=== PATIENT | male | born 1975 | race Caucasian/White ===

== ENCOUNTER 2019-10-27 01:38 | Emergency (ER) | payer BC ==
[~2019-10-27] VITALS: Ht 175.3 cm; Wt 86.2 kg
--- NOTE | 2019-10-27 01:50 | NUR ---
XRAY AT BEDSIDE
--- NOTE | 2019-10-27 01:57 | NUR ---
PT CAME INTO THE C/O RIGHT 5TH DIGIT PAIN WITH DEFORMITY S/P GLF @1230. PT AAOX4, NO ACUTE DISTRESS NOTED. AWAITING FOR MD PEOPLES
--- NOTE | 2019-10-27 03:30 | NUR ---
XRAY AT BEDSIDE
[2019-10-27] MEDS ORDERED: HYDROCODONE/APAP 5/325MG 1 EACH TABLET ONE (04:05)
[2019-10-27] MEDS ORDERED: HYDROCODONE/APAP 5/325MG 1 EACH TABLET PO ONE (04:30)
--- NOTE | 2019-10-27 04:54 | NUR ---
Patient discharged to home in stable condition. Written and verbal after care instructions given. Patient verbalizes understanding of instruction.
[2019-10-27 04:55] VITALS: BP 133/67
== END 2019-10-27 04:56 | disposition home or self-care (01) ==
LOC: ER 01:41
DX: S62.616A Displaced fracture of proximal phalanx of right little finger, initial encounter for closed fracture (principal); F17.200 Nicotine dependence, unspecified, uncomplicated; W18.39XA Other fall on same level, initial encounter; Y93.89 Activity, other specified; Y92.89 Other specified places as the place of occurrence of the external cause; Y99.8 Other external cause status
CPT/HCPCS: 73130-TC; 73140-TC

== ENCOUNTER 2024-11-26 06:31 | Inpatient (IN) | payer BC, OTHER ==
[~2024-11-26] VITALS: Ht 172.7 cm; Wt 90.7 kg
[2024-11-26] VITALS (31 sets, daily range): BP systolic 107–142; BP diastolic 70–102; TEMP 98.2–98.8; O2SAT 91–98
[2024-11-26] MEDS ORDERED: ASPIRIN 325 MG TABLET ONE (06:54)
[2024-11-26] MEDS: ASPIRIN 325 MG TABLET PO ONE (06:55)
[2024-11-26 07:24] LABS: BASOPHILS # (AUTO) 0.1 K/uL (0.0-0.2); BASOPHILS % (AUTO) 0.8 % (0.0-2.0); EOSINOPHILS % (AUTO) 9.6 % (0.0-6.0); HEMATOCRIT 48 % (39-51); HEMOGLOBIN 16.3 g/dL (13.5-17.5); LYMPHOCYTES # (AUTO) 2.7 K/uL (0.8-4.8); LYMPHOCYTES % (AUTO) 26.1 % (20.0-44.0); MEAN CORPUSCULAR HEMOGLOBIN 29 PG (26.0-33.0); MEAN CORPUSCULAR HGB CONC 34 g/dl (31.0-36.0); MEAN CORPUSCULAR VOLUME 85 fL (80-96); MONOCYTES # (AUTO) 0.8 K/uL (0.1-1.30); MONOCYTES % (AUTO) 7.4 % (2.0-12.0); NEUTROPHILS # (AUTO) 5.9 K/uL (1.8-8.9); NEUTROPHILS % (AUTO) 56.1 % (43.0-81.0); PLATELET COUNT (AUTO) 240 K/uL (150-450); RED BLOOD CELL COUNT(AUTO) 5.62 MIL/uL (4.5-6.0); RED CELL DISTRIBUTION WIDTH 13.6 % (11.5-15.0); WHITE BLOOD COUNT (AUTO) 10.5 K/uL (4.3-11.0)
[2024-11-26] MEDS: ONDANSETRON HCL/PF 4 MG/2 ML VIAL IVP ONE (07:30)
[2024-11-26] MEDS: MORPHINE SULFATE INJ 2 MG/ML DISP.SYRIN IV ONE ×2 (07:30→08:57)
[2024-11-26] MEDS ORDERED: MORPHINE SULFATE INJ 2 MG/ML DISP.SYRIN ONE ×2 (07:33→08:44)
[2024-11-26] MEDS ORDERED: ONDANSETRON HCL/PF 4 MG/2 ML VIAL ONE (07:33)
[2024-11-26 07:36] LABS: CALCIUM, SERUM 8.7 mg/dL (8.5-10.1); CARBON DIOXIDE 31 mmol/L (21-32); CHLORIDE 105 mmol/L (98-107); CREATININE 1.1 mg/dL (0.6-1.3); GLUCOSE 119 mg/dL (74-106); POTASSIUM 4.2 mmol/L (3.5-5.1); SODIUM SERUM 142 mmol/L (136-145); UREA NITROGEN, BLOOD 19 mg/dL (7-18)
[2024-11-26] MEDS: ENOXAPARIN SODIUM 100 MG/ML DISP.SYRIN SQ SCH (08:43)
[2024-11-26] MEDS ORDERED: ENOXAPARIN SODIUM 100 MG/ML DISP.SYRIN SQ ONE (08:44)
[2024-11-26] MEDS ORDERED: METOPROLOL TARTRATE INJ 5 MG/5 ML AMPUL IVP SCH (09:00)
[2024-11-26] MEDS ORDERED: NITROGLYCERIN IN 5 % DEXTROSE 250 ML IV ONE (09:21)
[2024-11-26] MEDS ORDERED: IODIXANOL 150 ML IV ONE (09:21)
[2024-11-26] MEDS ORDERED: IV NS 0.9% 1,000 ML ONE (09:21)
[2024-11-26] MEDS ORDERED: IV SET PRIMARY PUMP SET 1 EA INFUS.SET MC ONE (09:21)
[2024-11-26] MEDS ORDERED: LIDOCAINE HCL/MPF 1% 30 ML VIAL IJ ONE (09:21)
[2024-11-26 09:35] LABS: PROTHROMBIN TIME 10.6 SECS (9.2-11.1)
[2024-11-26] MEDS ORDERED: MIDAZOLAM HCL 2 MG/2ML VIAL ONE (10:19)
[2024-11-26] MEDS ORDERED: FENTANYL PF 100MCG/2ML AMPUL ONE (10:19)
[2024-11-26] MEDS ORDERED: IODIXANOL 320MG/ML 50 ML IV ONE (10:29)
[2024-11-26] MEDS: ATORVASTATIN 40 MG TABLET PO SCH (10:30)
[2024-11-26] MEDS: PANTOPRAZOLE 40 MG TABLET.DR PO SCH (10:30)
[2024-11-26] MEDS ORDERED: HEPARIN SODIUM, PORCINE 5000 UNITS/1 ML VIAL ONE (10:31)
[2024-11-26] MEDS ORDERED: HEPARIN SODIUM, PORCINE 1,000 UNIT/ML VIAL ONE (10:31)
[2024-11-26] MEDS ORDERED: IODIXANOL 320MG/ML 100 ML IV ONE ×2 (10:45→10:57)
[2024-11-26] MEDS ORDERED: TICAGRELOR 90 MG TABLET ONE (10:59)
[2024-11-26] MEDS: METOPROLOL TARTRATE 50 MG TABLET PO SCH (12:00)
[2024-11-26 12:15] LABS: CHOLESTEROL 223 mg/dL (<200); HDL CHOLESTEROL 54 mg/dL (40-60); LDL 144 mg/dL (0-99); TRIGLYCERIDES 104 mg/dL (30-150)
[2024-11-26] MEDS ORDERED: MORPHINE SULFATE INJ 2 MG/ML DISP.SYRIN IM PRN (13:00)
[2024-11-26] MEDS: MORPHINE SULFATE INJ 2 MG/ML DISP.SYRIN IV PRN (13:18)
[2024-11-26] MEDS ORDERED: ONDANSETRON HCL/PF 4 MG/2 ML VIAL IVP PRN (14:00)
[2024-11-26] MEDS ORDERED: ACETAMINOPHEN 325 MG TABLET PO PRN (14:00)
[2024-11-26] MEDS ORDERED: Z GUARD REMEDY 4 OZ OINT TP PRN (14:00)
[2024-11-26] MEDS: TICAGRELOR 90 MG TABLET PO SCH (17:47)
[2024-11-27] VITALS (14 sets, daily range): BP systolic 69–116; BP diastolic 36–93; TEMP 97–99.8; O2SAT 92–99
[2024-11-27 04:00] LABS: BASOPHILS # (AUTO) 0.1 K/uL (0.0-0.2); BASOPHILS % (AUTO) 0.7 % (0.0-2.0); EOSINOPHILS # (AUTO) 0.5 K/uL (0.0-0.7); EOSINOPHILS % (AUTO) 4.8 % (0.0-6.0); HEMATOCRIT 43 % (39-51); HEMOGLOBIN 14.6 g/dL (13.5-17.5); LYMPHOCYTES # (AUTO) 2.4 K/uL (0.8-4.8); MEAN CORPUSCULAR HEMOGLOBIN 29 PG (26.0-33.0); MEAN CORPUSCULAR HGB CONC 34 g/dl (31.0-36.0); MEAN CORPUSCULAR VOLUME 84 fL (80-96); MONOCYTES # (AUTO) 1.1 K/uL (0.1-1.30); MONOCYTES % (AUTO) 10.5 % (2.0-12.0); NEUTROPHILS # (AUTO) 6.3 K/uL (1.8-8.9); PLATELET COUNT (AUTO) 223 K/uL (150-450); RED CELL DISTRIBUTION WIDTH 13.3 % (11.5-15.0); WHITE BLOOD COUNT (AUTO) 10.3 K/uL (4.3-11.0)
[2024-11-27 04:28] LABS: ALANINE AMINOTRANSFERASE 52 U/L (12-78); ALBUMIN 3.1 g/dL (3.4-5.0); ALKALINE PHOSPHATASE 49 U/L (46-116); ASPARTATE AMINOTRANSFERASE 163 U/L (15-37); BILIRUBIN,TOTAL 0.5 mg/dL (0.2-1.0); CALCIUM, SERUM 8.4 mg/dL (8.5-10.1); CARBON DIOXIDE 28 mmol/L (21-32); CHLORIDE 107 mmol/L (98-107); CREATININE 0.8 mg/dL (0.6-1.3); GLUCOSE 108 mg/dL (74-106); MAGNESIUM 1.9 mg/dL (1.8-2.4); PHOSPHORUS 3.6 mg/dL (2.5-4.9); POTASSIUM 4.2 mmol/L (3.5-5.1); SODIUM SERUM 142 mmol/L (136-145); TOTAL PROTEIN, SERUM 6.5 g/dL (6.4-8.2); UREA NITROGEN, BLOOD 13 mg/dL (7-18)
[2024-11-27 04:32] LABS: CHOLESTEROL 206 mg/dL (<200); HDL CHOLESTEROL 57 mg/dL (40-60); LDL 139 mg/dL (0-99); TRIGLYCERIDES 66 mg/dL (30-150)
[2024-11-27] MEDS: ASPIRIN 81 MG TAB.CHEW PO SCH (08:43)
[2024-11-27] MEDS: METOPROLOL TARTRATE 50 MG TABLET PO SCH (08:43)
[2024-11-27] MEDS ORDERED: TICA90TA PO (15:07)
[2024-11-27] MEDS ORDERED: ASPI-1169 PO (15:07)
== END 2024-11-27 18:12 | disposition home or self-care (01) | DRG 174 ==
LOC: ER 06:36 → TELE 09:19 → ICU 09:37
PROVIDERS: ADMIT Nurse Practitioner Acute Care; ATTEND Internal Medicine
PROC: 4A023N7 Measurement of Cardiac Sampling and Pressure, Left Heart, Percutaneous Approach (ICD-10-PCS; principal; 2024-11-26)
PROC: 027034Z Dilation of Coronary Artery, One Artery with Drug-eluting Intraluminal Device, Percutaneous Approach (ICD-10-PCS; 2024-11-26)
PROC: B211YZZ Fluoroscopy of Multiple Coronary Arteries using Other Contrast (ICD-10-PCS; 2024-11-26)
PROC: 02C03ZZ Extirpation of Matter from Coronary Artery, One Artery, Percutaneous Approach (ICD-10-PCS; 2024-11-26)
DX: I21.4 Non-ST elevation (NSTEMI) myocardial infarction (principal); E78.5 Hyperlipidemia, unspecified; I10 Essential (primary) hypertension; I65.21 Occlusion and stenosis of right carotid artery; I25.10 Atherosclerotic heart disease of native coronary artery without angina pectoris; Z98.890 Other specified postprocedural states; Z72.0 Tobacco use; Z79.01 Long term (current) use of anticoagulants; Z79.899 Other long term (current) drug therapy
CPT/HCPCS: 36415; 71045-TC; 80048-TC; 80053-TC; 80061-TC; 83735-TC; 84100-TC; 84484-TC; 85025-TC; 85347; 85610-TC; 85730-TC; 87081-TC; 93307-TC; A4223; G0378; J1644; J1650; J2250; J2270; J2405; J3010; J3490; J7030; Q9967

== ENCOUNTER 2025-03-24 09:40 | Emergency (ER) | payer OTHER ==
[~2025-03-24] VITALS: Ht 175.3 cm; Wt 95.3 kg
[~2025-03-24 09:40] MED LIST: ASPI-1169 PO; TICA90TA PO
[2025-03-24 09:51] VITALS: BP 128/70; TEMP 98.8
[2025-03-24] MEDS ORDERED: ACET-2605 PO (10:09)
[2025-03-24] MEDS ORDERED: IBUP-1957 PO (10:09)
[2025-03-24 10:12] VITALS: O2SAT 98
== END 2025-03-24 10:11 | disposition home or self-care (01) ==
LOC: ER 09:44
DX: S46.312A Strain of muscle, fascia and tendon of triceps, left arm, initial encounter (principal); F17.290 Nicotine dependence, other tobacco product, uncomplicated; Z79.02 Long term (current) use of antithrombotics/antiplatelets; Z79.82 Long term (current) use of aspirin; Z79.899 Other long term (current) drug therapy